=== PATIENT | female | born 1940 | race Caucasian/White ===

== ENCOUNTER → 2024-03-27 14:02 | Outpatient (BNVA) | payer MEDICARE, SELFPAY | PROVIDERS: PCP Family Medicine; Visit Provider Internal Medicine | DX: R07.9 Chest pain, unspecified (principal); I49.8 Other specified cardiac arrhythmias; R94.31 Abnormal electrocardiogram [ECG] [EKG] | CPT/HCPCS: 93005; 99204 ==

== ENCOUNTER 2024-04-04 12:55 | Outpatient (CLI) | payer MEDICARE, SELFPAY ==
--- NOTE | 2024-04-04 13:30 | USCV_ITS ---
Trupti Ladd Age: 84 Gender: F : 1940 Exam Date: 04/04/2024 13:35 Ordering Phys: Wisam Yeung M.D ([email or web address]) Technologist: CT Exam Location[place] [facility] [place]: sob BP: 112 / 64 HR: 66 Rhythm: Sinus Technical Quality: Adequate MEASUREMENTS (Male / Female) Normal Values 2D ECHO LVOT Diameter 2.0 cm LV Ejection Fraction MOD 4C 64.0 % LV Ejection Fraction MOD 2C 45.9 % LV Ejection Fraction 2C AL 46.9 % LA Diameter 4.0 cm RA Systolic Volume 4C AL 62.1 ml RA Systolic Volume 4C MOD 61.6 ml LA Sys Volume AL 47.1 cm cubed LA Sys Volume Index AL 31.9 cm cubed/m squared Aorta at Sinotubular Diameter 2.0 cm IVC Diameter 1.5 cm M-MODE LA Ao Ratio MM 1.6 AV Cusp Separation MM 1.7 cm DOPPLER AV Peak Velocity 155.0 cm/s LVOT Peak Velocity 93.0 cm/s AV Area Cont Eq vti 2.0 cm squared AV Area Cont Eq pk 2.0 cm squared MV Peak Velocity 133.0 cm/s MV Area PHT 5.2 cm squared TR Peak Velocity 303.0 cm/s TR Peak Gradient 36.7 mmHg TR Mean Velocity 236.0 cm/s TR Mean Gradient 24.6 mmHg TR Velocity Time Integral 78.7 cm TV Peak E Velocity 95.0 cm/s Right Atrial Pressure 3.0 mmHg Pulmonary Artery Systolic Pressu 39.7 mmHg PV Peak Velocity 104.0 cm/s FINDINGS Left Ventricle Left ventricle is normal in size. LV systolic function is normal with EF of 55 to 60%. No regional wall motion abnormalities are seen. Right Ventricle Normal in size and function. Right Atrium Dilated Left Atrium Dilated Mitral Valve Structurally normal mitral valve. Mild mitral regurgitation Aortic Valve Structurally normal aortic valve. No significant stenosis or regurgitation. Tricuspid Valve Mild to moderate tricuspid regurgitation. RVSP is 35 to 40 mmHg. This is consistent with mild pulmonary hypertension. Pulmonic Valve Mild pulmonic regurgitation Pericardium Possible pleural effusion vs artifact Aorta Normal in size IVC Appears to be normal CONCLUSIONS LV systolic function is normal with EF 55 to 60%. Biatrial enlargement Mild mitral regurgitation Mild to moderate tricuspid regurgitation Mild pulmonary hypertension Mild pulmonic regurgitation Possible pleural effusion vs artifact No comparison studies Wisam Yeung MD (Electronically Signed) Final Date: 14 April 2024 21:52 S
== END 2024-04-04 12:56 | disposition home or self-care (01) ==
PROVIDERS: PCP Family Medicine; Visit Provider Internal Medicine
DX: I07.1 Rheumatic tricuspid insufficiency (principal); R07.9 Chest pain, unspecified; R06.02 Shortness of breath
CPT/HCPCS: 93306

== ENCOUNTER → 2024-11-07 13:40 | Outpatient (BNVA) | payer MEDICARE, SELFPAY | PROVIDERS: PCP Family Medicine; Visit Provider Internal Medicine | DX: I48.91 Unspecified atrial fibrillation (principal); Z79.01 Long term (current) use of anticoagulants | CPT/HCPCS: 99213 ==

== ENCOUNTER → 2025-08-07 14:02 | Outpatient (BNVA) | payer MEDICARE, SELFPAY | PROVIDERS: PCP Family Medicine; Visit Provider Internal Medicine | DX: I48.91 Unspecified atrial fibrillation (principal); Z79.01 Long term (current) use of anticoagulants; Z87.891 Personal history of nicotine dependence | CPT/HCPCS: 99213 ==